=== PATIENT | male | born 1985 | race Caucasian/White ===

== ENCOUNTER 2017-04-14 13:02 | Emergency (ER) | payer BC, OTHER ==
[2017-04-14] MEDS ORDERED: HYDROmorphone 1 MG/ML Syringe IM ONE (13:18)
[2017-04-14] MEDS ORDERED: Ondansetron 4 MG Tab.DIS PO ONE (13:18)
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
[2017-04-14] MEDS ORDERED: Diphtheria,Pertussis(Acell),Tetanus Vaccine 0.5 ML Syringe IM ONE (13:46)
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
== END 2017-04-14 15:08 | disposition home or self-care (01) ==
LOC: MW.ED 13:02
DX: S02.642B Fracture of ramus of left mandible, initial encounter for open fracture (principal); S02.601A Fracture of unspecified part of body of right mandible, initial encounter for closed fracture; S02.19XA Other fracture of base of skull, initial encounter for closed fracture; Z23 Encounter for immunization; F17.210 Nicotine dependence, cigarettes, uncomplicated; Y04.0XXA Assault by unarmed brawl or fight, initial encounter
CPT/HCPCS: 70450; 70486; 72125; 90471; 90715; 96372; 99283; A9270; J1170

== ENCOUNTER 2024-11-30 22:03 | Emergency (ER) | payer OTHER, BC ==
[2024-11-30] MEDS ORDERED: Sodium Chloride 0.9% 10 ML Syringe FLUSH PRN (22:54)
[2024-11-30] MEDS ORDERED: Sodium Chloride 0.9% 2.5 ML Syringe FLUSH PRN (22:54)
[2024-11-30 22:59] LABS: BASOPHILS ABSOLUTE AUTO 0.05 K/uL (0.00-0.20); BASOPHILS PERCENT AUTO 0.5 % (0.0-1.0); EOSINOPHILS ABSOLUTE AUTO 0.19 K/uL (0.00-0.45); EOSINOPHILS PERCENT AUTO 2.1 % (0.0-6.0); IMMATURE GRAN ABSOLUTE AUTO 0.05 K/uL (0.00-0.05); IMMATURE GRAN PERCENT AUTO 0.5 % (0.0-0.4); LYMPHOCYTES ABSOLUTE AUTO 2.91 K/uL (1.00-4.80); LYMPHOCYTES PERCENT AUTO 31.9 % (24.0-44.0); MEAN PLATELET VOLUME 9.2 fL (9.4-12.4); MONOCYTES ABSOLUTE AUTO 0.85 K/uL (0.00-0.80); MONOCYTES PERCENT AUTO 9.3 % (0.0-8.0); NEUTROPHILS ABSOLUTE AUTO 5.06 K/uL (1.80-7.70); NEUTROPHILS PERCENT AUTO 55.7 % (41.0-71.0); NRBC ABSOLUTE 0.00 K/uL (0.00-0.02); NRBC PERCENT 0.0 /100WBC (0.0-0.2); PLATELET COUNT,PLT 241 K/uL (150-400); RED BLOOD CELL COUNT 4.51 M/uL (4.52-5.90); WHITE BLOOD CELL COUNT,WBC 9.11 K/uL (3.9-11.3)
[2024-11-30] MEDS: Diphtheria,Pertussis(Acell),Tetanus Vaccine 0.5 ML Syringe IM ONE (23:01)
[2024-11-30 23:11] LABS: INR 0.95 (0.86-1.11); PTT,PARTIAL THROMBOPLSTIN TIME 27.2 SEC (23.9-30.7)
[2024-11-30 23:23] LABS: A/G RATIO 1.1 (0.9-1.6); ALANINE AMINOTRANSFERASE,ALT 19.0 IU/L (14-63); ASPARTATE AMNIOTRANSFERASE,AST 17.0 IU/L (15-37); BILIRUBIN TOTAL 0.4 mg/dL (0.2-1.0); BLOOD UREA NITROGEN,BUN 12.0 mg/dL (7.0-18.0); CARBON DIOXIDE,CO2 25.7 mmol/L (21.0-32.0); CHLORIDE,CL 104.0 mmol/L (98-107); CREATINE KINASE,CK 193.0 U/L (26-308); CREATININE 0.9 mg/dL (0.8-1.3); EST CRCL DRUG DOSING (CG) 112.38 mL/min; GLUCOSE RANDOM 101.0 mg/dL (74-106); POTASSIUM,K 3.9 mmol/L (3.5-5.1); PROTEIN TOTAL,TP 6.4 g/dL (6.4-8.2); SODIUM,NA 138.0 mmol/L (136-148)
[2024-11-30 23:37] LABS: ESTIMATED GFR 113.0 mL/min (>60)
[2024-11-30] MEDS: Iopamidol 755 MG/ML 500 ML Multipack Bottle IVPUSH ONE (23:38)
== END 2024-12-01 02:52 | disposition home or self-care (01) ==
LOC: MW.ED 22:03
DX: S70.12XA Contusion of left thigh, initial encounter (principal); S30.1XXA Contusion of abdominal wall, initial encounter; E86.0 Dehydration; V26.99XA Unspecified rider of other motorcycle injured in collision with other nonmotor vehicle in traffic accident, initial encounter; Z23 Encounter for immunization
CPT/HCPCS: 36415; 70450; 71260; 72125; 73701; 74177; 80053; 82550; 83735; 85025; 85610; 85730; 90471; 90715; 96360; 96361; 99284; A9270; J7030; Q9967; 99283